=== PATIENT | female | born 1965 ===

== ENCOUNTER 2020-01-14 10:08 | Outpatient (CLI) | payer BC, SELFPAY ==
[2020-01-18 21:51] LABS: SARS-CoV-2 RNA Undetected (Undetected); SARS-CoV-2 Specimen Source Nasopharynx
== END 2020-01-14 10:28 ==
PROVIDERS: Visit Provider Internal Medicine
DX: Z11.59 Encounter for screening for other viral diseases (principal)
CPT/HCPCS: U0003